=== PATIENT | male | born 1975 | race Caucasian/White ===

== ENCOUNTER 2018-02-17 08:30 | Outpatient (RCR) | payer OTHER, SELFPAY ==
--- NOTE | 2018-02-09 15:00 | IE_ITS ---
Date: February 09, 2018 Referring: Dr. Gordon Feng M.D. Diagnosis: S/p R rotator cuff repair P.T. Diagnosis: Same, along with a bicep tenodesis. SUBJECTIVE: History of Present Illness: Garfield complains of intermittent discomfort throughout the anterolateral aspect of the proximal R humerus. His is usually movement induced, especially with end range movements, especially with behind his back or overhead. A 42 year old male who injured his R shoulder when catching a cylinder when taking it off a rack. Developed immediate discomfort, thought it was a strained muscle. Continued to work, but his symptoms persisted. He under a cuff repair and bicep tenodesis on 12/04/17. Removed his sling approximately 3 weeks ago, then shortly thereafter he was manipulating a light item and felt a pop in his shoulder. Developed significant ecchymosis throughout his humerus. This has settled back down to the pre exacerbated state. Pain Ratin-3/10 Pain Location: Throughout the anterolateral aspect of the R proximal humerus. Prior Level of Function: Independent with all ADL's Current Level of Function: Has difficulty with using his arm at or above shoulder level, behind his back, especially if it weighted. 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 . . Is able to sleep on his R side for less than 10 min periods. Previous Treatment: Rest. 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 Comorbidities: Anxiety Falls in the last year: __X__ No ____Yes - How many? ____ - (if over 2, balance SM needs to be completed) Reported hospitalizations in the last year - ____ No __X__ Yes - Dates of admission/reason: Recent cuff repair Medications: Ibuprofen prn, anti-anxiety medication. Quality of Life: ____ Excellent __X__ Good ____ Fair ____ Poor Standardized Measures: Did not complete the DASH questionnaire. OBJECTIVE: Posture: Mesomorphic Observation: (behavior, atrophy, skin color, etc.) No abnormal pain behavior noted, pleasant. Palpation: Has tenderness to palpation throughout the R AC joint, but moreso subacromially as well as over the greater tuberosity compared to the L. Edema: (-) effusion, erythema or warmth. No ecchymosis noted now. ROM: His cervical spine movements are full and painless with movement. Active R shoulder motion reveals good initiation of flexion/abduction. This is limited to approximately 100 degrees, abduction is 90 degrees with scapular substitution with last 15-20 degrees. His L thumb is at about the T9 level and his R thumb is 9 below, this causes drawing throughout the anterolateral aspect of the proximal humerus. His AAROM in the supine position flexion 120, abduction 90 degrees, ER 90 degrees and IR 60 degrees. Pure GH movement on the R is 60 degrees compared to 90 degrees L. 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 He tolerates moderate resistance to the cuff without pain or weakness. I do not stress the biceps mechanism. His elbow, forearm, wrist and digit movements are full and painless with movement. Neuro: Intact. Treatment: Evaluation along with mobilization of the R shoulder girdle with emphasis on the R shoulder girdle. IE: [id number] Manual therapy: ([id number]). Direct treatment time: 45 mins Total treatment time: 45 mins ASSESSMENT: Patient is a 42-year-old male, referred for PT services with the diagnosis of s /p rotator cuff repair R shoulder. Patient presents with clinical signs and symptoms consistent with this diagnosis, along with a biceps tenodesis which he may have traumatized recently resulting in initial humeral ecchymosis and a Bhargav deformity. Recent surgery results in the following impairment level findings: Limited ROM of the R shoulder along with weakness. 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 . . Patient is assessed as: __X__ Low 94914 ____ Moderate 55205 ____ High 39242 complexity, based on the following: History: (list): Recent cuff repair and biceps tenodesis. x See comorbidities and social history. Examination: (list): X See above for functional limitations and impairments. Presentation: Stable . X Evolving Unstable Decision-Making: X Low complexity Moderate complexity High complexity % Disability based on clinical findings __X__ Patient requires skilled PT intervention to remediate the above functional limitations to return to: __X__ Premorbid level of function __X__ Return to full functional mobility Prognosis: __X__ Excellent __X__ Good ____ Fair ____ Poor STG: __6__ weeks. 1: Restore passive movement of the R shoulder with emphasis on GH joint. 2: Improve strength to perform ADL's at or above shoulder level, or behind his back. 3: Increase time lying on his R side with less pain. LTG: __12__ weeks. 1; Return to premorbid level of function. 2: Return to full, pain-free, functional mobility. 3: Independent with self-maintenance program. PLAN: Session today consisted of the evaluation along with mobilization of the R shoulder girdle with emphasis on the GH joint along with issuing him a written and illustrated HEP consisting of Codman exercises and gentle stretching into the sagittal plane as well as behind his back. Emphasize the importance of doing this within limits of pain, Codman exercises for symptomatic relief. Ice as needed. Patient to be seen 2 x per week, for 4-6 weeks, adjusting frequency of visits per patient symptoms and response to treatment. Treatment to include: Manual therapy - [id number]: For mobilization and eventual Therapeutic exercise - [id number] strengthening, etc. . . according to Dr. Feng's protocol. Thank you for this referral. Please do not hesitate to contact me with any questions or concerns regarding this patient's plan of care. cc: Gordon Feng MD
--- NOTE | 2018-02-17 08:30 | PTTR_ITS ---
DATE: 02/17/18 SUBJECTIVE: Garfield states his appt went okay the other day, but nothing too intense. He developed a head cold. OBJECTIVE: Approximately 10 weeks post op for a cuff repair, biceps tenodesis. He has been performing Codman exercises at home. I test his shoulder movements prior to mobilization and his flexion/abduction is approximately a 100 degrees. His R thumb is at the lower lumbar spine Manual therapy: ([id number]). I begin in supine position with scapular jiggles and work on his rotation, I can get close to 90 degrees of ER and 80 degrees of IR. He has some mild end range discomfort with IR. Forward flexion is close to 145. These are controlled movements with some MET's. I then have him perform some scapular protraction/retraction with the arm at 90 degrees, and following mobilization. Therapeutic procedures ([id number]). I go over HEP with anti-gravity strengthening exercises in supine, prone and sidelying positions. Also scapular stabilization exercises in prone position. End with 5 mins on UBE * Direct treatment time: 35 mins Total treatment time: 35 mins A: Doing well, has good ROM, no signs of a frozen shoulder. It is now a matter of building up the strength of the cuff. He does have enough weakness where it is difficult for him to lift his arm against gravity, but this should come with time. I am going to set him up with [facility] for continuation of his program as we are moving into scap stabilization phase. P: Issued a written and illustrated HEP on anti-gravity strengthening. Ice as needed. Has a follow up with [facility] later this week. DLW/dl
== END 2018-02-20 23:59 | disposition home or self-care (01) ==
LOC: PT 08:30
PROVIDERS: PCP Specialist/Technologist Athletic Trainer
DX: S43.421D Sprain of right rotator cuff capsule, subsequent encounter
CPT/HCPCS: 97110; 97140; 97161

== ENCOUNTER 2019-06-13 10:30 | Emergency (ER) | payer MEDICAID, SELFPAY ==
[2019-06-13 10:33] VITALS: BP 136/89; PULSE 88; RESP 22; TEMP 36.7; O2SAT 99
--- NOTE | 2019-06-13 10:40 | ED.GENADUL_ITS ---
Discharge Plan Disposition Patient Disposition: AGAINST MEDICAL ADVICE Condition: Improving Discharge Details Chief Complaint: Orthopedic Clinical Impression: Lumbago Primary Care Provider: None,None ED Provider: Oswald Chris Home Meds and New Rx's Prescriptions: No Action ibuprofen 800 mg Tablet 800 mg PO PRN PRNRF: 0 Medical Decision Making This is a pleasant 43-year-old male with a past medical history of tobacco use, who presents today for evaluation of back pain. Yesterday he was lifting a heavy piano, and his feet were on separate steps, when he lifted he noticed mild to moderate pain in his left lower back. This is continued since then, slightly improved with Tylenol. He has no urinary symptoms, physical exam demonstrates no concerning red flags suggestive of cauda equina syndrome. He is not an IV or illicit drug user. He has no bowel or bladder incontinence. Physical exam at this time shows signs and symptoms consistent with lower back spasm, and inconsistent with kidney stone, AAA, or cauda equina syndrome. We will treat with steroids NSAIDs Lidoderm patch and muscle relaxants. Will get screening x-rays. We will get a screening UA. 11:48 AM Patient was treated with his medications here, he had an improvement of his pain and symptomatology. Unfortunately during his stay here he asked for his bed to be adjusted, this was asked of 1 of the ER techs. Unfortunately it was not adjusted for him at that time which made him notably disgruntled and unhappy. He had a very fast and significant change in mood and disposition, and despite conversation with myself, his nurse, and other staff the patient immediately removed his IV, grabbed his crutches and left the ED. Stopped him twice in the hallway completed notably empathetically to stay to allow for the imaging and UA, as well as for prescription to go home with, however he was unwilling to wait for paperwork, to sign forms, or other changes. He stated that he would be going to the [place] emergency department for further evaluation. Multiple times we attempted to redirect, I offered to do anything to help relieve the situation but he felt very unwilling to change his mind her opinion of the lab animal technician with the department at this time. The patient was unwilling to stop wait and hear any of my additional concerns as well as any of my simply verbal discha rge instructions. I will touch base with the [place] ED to make them aware of our work-up and findings, as well as my concerns and differential. We will not reveal any related HIPPA information at this time otherwise. At the time of his departure he continued to demonstrate no signs of acute cord compression or cauda equina syndrome. HPI General Date/Time Provider Initiated Documentation: 06/13/19 10:30 . HPI Narrative: This is a 43-year-old male with no significant past medical history who presents today for evaluation of left lower back pain. The patient states that he was moving a piano yesterday, and he was on 2 different steps when he lifted heavily, he immediately had pain in his left lower back, which is worsened throughout the night. Improved slightly with ibuprofen, he has no associated numbness or tingling down his legs. No weakness in his legs. He does admit to notable reproducibility of his pain when he bends over and moves his left leg. Pain is located in the back and not the hip. He denies any fall or trauma. He denies any IV or illicit drug use. He denies any fever or chills. He denies any urinary symptoms, no hematuria or increased urinary frequency. Related Data Home Medications Medication Instructions Recorded Confirmed ibuprofen 800 mg PO PRN PRN 06/13/19 06/13/19 Allergies Allergy/AdvReac Type Severity Reaction Status Date / Time meperidine [From Demerol] Allergy Unverified 06/13/19 11:29 prochlorperazine Allergy Unverified 06/13/19 11:29 [From Compazine] sertraline [From Zoloft] Allergy Unverified 06/13/19 11:29 General Stated Complaint: Orthopedic SAGAR: 3 Review of Systems All systems reviewed & are unremarkable except as noted in HPI and below PFSH Social History Smoking/Tobacco Use Status: Current every day Tobacco Type: cigarettes Alcohol Intake: current Alcohol Intake frequency: a few times a month Drug use: Occasionally Substance use type: marijuana Do you feel safe at home: Yes Exam Narrative Exam Narrative: 1.Const: Well-nourished, Well-developed, appearing stated age 2.Eyes: PERRL, no conjunctival injection, and symmetrical lids. 3.ENT: Atraumatic external nose and ears. Moist MM. Neck: Symmetric, trachea midline, No thyromegaly. 4.CVS: +S1/S2, No murmurs or gallops. Peripheral pulses 2+ and equal in all extremities. Brisk capillary refill in all extremities. 5.RESP: Unlabored respiratory effort. Clear to auscultation bilaterally. No wheezes rales or rhonchi 6.GI: Soft, Nontender/Nondistended, No hepatosplenomegaly. No guarding or rebound. 7.MSK: Normocephalic/Atraumatic, Extremities w/o deformity or ttp No cyanosis or clubbing, Normal movement of all extremities No midline tenderness to palpation over the CTLS spine. Normal ROM in flexion, extension, side bend, and rotation. Notable reproducible pain in the left lower paraspinal muscles, that is present with associated spasm. No hip tenderness. Patient has +5 out of 5 strength in the lower extremities in dorsiflexion and plantarflexion, knee flexion and extension, hip flexion and extension. Normal strength for dorsiflexion and plantar flexion of the great toe bilaterally. There is +2 over 2 dorsalis pedis pulses bilaterally. There is normal sensation to the skin with light touch at the foot, knee, and hip. Normal saddle sensation. Good sensation over the deep sural nerve area bilaterally. Rectal exam demonstrates normal rectal tone, good perirectal sensation. Reflexes are +2 over 4 in the patellar reflex bilaterally. +5 out of 5 strength in the medial, ulnar, radial nerve distribution bilaterally in the hands as well as intact light touch sensation to these dermatomes on the hands. 8.Skin: Warm, Dry. No rashes or lesions. 9.Neuro: announcer II-XII grossly intact. Sensation grossly intact, no focal neurologic deficits. 10.Psych: (AAO) x3. Appropriate mood and affect Course Vital Signs Vital signs: Vital Signs Temperature 36.7 C 06/13/19 10:33 Pulse 88 06/13/19 10:33 Respiratory Rate 22 06/13/19 10:33 Blood Pressure 136/89 06/13/19 10:33 Pulse Oximetry 99 06/13/19 10:33 Temperature 36.7 C 06/13/19 10:33 Temperature Source Skin 06/13/19 10:33 Pulse 88 06/13/19 10:33 Respiratory Rate 22 06/13/19 10:33 Blood Pressure 136/89 06/13/19 10:33 Blood Pressure Position Sitting 06/13/19 10:33 Pulse Oximetry 99 06/13/19 10:33 Oxygen Delivery Method Room Air 06/13/19 10:33 Oxygen Flow Rate 0 06/13/19 10:33 Pain Level 10 06/13/19 10:33
[2019-06-13] MEDS: Lidocaine 5% Patch 1 PATCH TP (11:02)
[2019-06-13] MEDS: diazePAM 10 MG/2 ML SYR IVP (11:03)
[2019-06-13] MEDS: methylPREDNISolone SUCC 125 MG VIAL IVP (11:04)
[2019-06-13] MEDS: Acetaminophen 500 MG TAB 1000 MG PO (11:04)
[2019-06-13] MEDS: Ketorolac 30 MG/ML VIAL IVP (11:04)
[2019-06-13 11:20] VITALS: BP 125/72; PULSE 71; PULSE 78; RESP 17
[2019-06-13 11:21] VITALS: PULSE 75; RESP 20
--- NOTE | 2019-06-13 11:51 | NUR.NOTE ---
Nursing Note:Patient left AMA, states he wanted his bed adjusted and was told by ELECTRICAL TESTS SUPERVISOR he needed to wait per patient report. Patient had stated his pain was decreased post Valium and other analgesics and was resting comfortable in bed waiting for X ray. This nurse heard patient yelling and attempted to deescalate and redirect patient stating we could discuss options for pain control and patient declined to see MD. Patient notably angry shaking and stated the tech ruined it. IV was removed and patient refused to sign AMA form, ambulated out with crutches.
== END 2019-06-13 11:46 | disposition left against medical advice (07) ==
PROVIDERS: Emergency Provider Student in an Organized Health Care Education/Training Program
DX: M54.5 Low back pain (principal); M62.830 Muscle spasm of back; X50.0XXA Overexertion from strenuous movement or load, initial encounter; Z53.29 Procedure and treatment not carried out because of patient's decision for other reasons
CPT/HCPCS: 96374; 96375; 99284; 81003; J1885; J2930; J3360